=== PATIENT | male | born 1955 | race Caucasian/White ===

== ENCOUNTER → 2020-04-23 14:12 | Outpatient (BNVA) | payer SELFPAY | PROVIDERS: PCP Internal Medicine; Visit Provider Urology | DX: Z76.89 Persons encountering health services in other specified circumstances (principal) ==

== ENCOUNTER → 2021-06-17 12:14 | Outpatient (BNVA) | payer BC, SELFPAY | PROVIDERS: PCP Internal Medicine; Visit Provider Urology ==

== ENCOUNTER → 2021-09-19 10:53 | Outpatient (BNVA) | payer OTHER, SELFPAY | PROVIDERS: PCP Internal Medicine; Visit Provider Urology | DX: R35.1 Nocturia (principal); R39.12 Poor urinary stream | CPT/HCPCS: 52000 ==

== ENCOUNTER 2023-08-05 10:12 | Outpatient (AMB) | payer OTHER, SELFPAY ==
--- NOTE | 2023-08-05 10:21 | A.OFFVIS_ITS ---
Intake Intake Visit Reasons: PVR Follow Up Intake Note: Patient of Dr Guevara presents today for a follow-up on PVR: Meds- Tamsulosin Allergies to Antibiotic- Amoxicillin Blood Thinner- None Post Void Residual: 102 mL Nursing Resident Required: No Accompanied by: Self / Same As Patient Allergies amoxicillin Allergy (Unknown, Verified 09/20/23 09:44) Unknown HPI HPI Comments History of Present Illness Details 08/05/2023--Jhon is a 68-year-old male who has been followed by Dr. Guevara in the past for BPH. He was seen last in the office on 01/06/2022. He is seen for the following urologic conditions - lower urinary tract symptoms. He complains of weak stream. Review of chart: 01/16/2022 PSA under 2.5 Cystoscopy with tight bladder neck Recommend transurethral incision of the prostate Risks and benefits discussed Lower Urinary Tract Symptoms:?Current visit is for further evaluation of, lower urinary tract symptoms, predominate obstructive symptoms.?Current treatment includes 03/15 , medication, alpha jacqueline, tamsulosin.?Prostate Symptom Score 8/18 , Moderate (9-19), Bother 3.?Symptoms include /18 , frequency, weak stream, nocturia (>2), and are progressing.?Results from testing include? renal/bladder us? Yes ? date? 03/24/2018 ? PVR? 120 ? prostate size? 30 PSA - 08/19 1.6 ?Prior Prostate Score unknown.?Prostate volume 30-50gm.? 08/05/2023--plan: Refill tamsulosin. Dis cussed follow-up with office cystoscopy [facility] Surgical History No pertinent past surgical history Family History Father No problems noted. Mother No problems noted. Sister Breast cancer Brother Oral cancer Sister Lymph node cancer Social History Alcohol intake: current Alcohol intake frequency: holidays/special occasions only Alcohol type: wine Patient Tobacco Use Status: Former Tobacco user Quit Date: Quit at the age 17 yrs old, smoked for a short period of time. Review of Systems Const All systems reviewed & are unremarkable except as noted in HPI and below Reports no additional complaints Eyes Reports no additional complaints ENT Reports no additional complaints Card Reports no additional complaints Resp Reports no additional complaints GI Reports no additional complaints Reports as per HPI Musc Reports no additional complaints Skin/Breast Reports system reviewed and no additional complaints, except as documented Neuro Reports no additional complaints Psych Reports no additional complaints Endo Reports no additional complaints Javi/Lymph Reports no additional complaints Aller/Immun Reports no additional complaints Results AMB Urinalysis, Automated UA Leukoctes 0 Briana/uL Last Edit by ANANT Sanchez on 08/05/23 10:46 UA Nitrite Negative Last Edit by ANANT Sanchez on 08/05/23 10:46 UA Urobilinogen 0.2 mg/dL Last Edit by ANANT Sanchez on 08/05/23 10:4 6 UA Protein 0 mg/dL Last Edit by ANANT Sanchez on 08/05/23 10:46 UA pH 7.0 Last Edit by ANANT Sanchez on 08/05/23 10:46 UA Blood 0 Parth/uL Last Edit by ANANT Sanchez on 08/05/23 10:46 UA Specific [place] 1.010 Last Edit by ANANT Sanchez on 08/05/23 10: 46 UA Ketone Negative Last Edit by ANANT Sanchez on 08/05/23 10:46 UA Bilirubin 0 mg/dL Last Edit by ANANT Sanchez on 08/05/23 10:46 UA Glucose 0 mg/dL Last Edit by ANANT Sanchez on 08/05/23 10:46 Results Reviewed Results Reviewed: Laboratory Last Values Urine pH (Auto) 7.0 08/05/23 10:44 Specific [place] (Auto) 1.010 08/05/23 10:44 Urine Protein (Auto) 0 mg/dL 08/05/23 10:44 Glucose (UA)(Auto) 0 mg/dL 08/05/23 10:44 Urine Ketones (Auto) Negative 08/05/23 10:44 Urine Blood (Auto) 0 Parth/uL 08/05/23 10:44 Urine Nitrite (Auto) Negative 08/05/23 10:44 Urine Bilirubin (Auto) 0 mg/dL 08/05/23 10:44 Urine Urobilinogen (Auto) 0.2 mg/dL 08/05/23 10:44 Leukocyte Esterase (Auto) 0 Briana/uL 08/05/23 10:44 Assessment & Plan Assessment & Plan (1) BPH w urinary obs/LUTS: Code(s): N40.1 - Benign prostatic hyperplasia with lower urinary tract symptoms; N13.8 - Other obstructive and reflux uropathy (2) Weak urinary stream: Code(s): R39.12 - Poor urinary stream (3) Nocturia: Code(s): R35.1 - Nocturia Plan Tamsulosin 0.4 mg daily PSA screening Follow-up office cystoscopy Orders: Orders PSA,Total (Free>4and<10) 08/09/23 Z12.5 - Encounter for screening for malignant neoplasm of prostate AMB Urinalysis Automated 08/05/23 Z13.9 - Encounter for screening, unspecified Medications: Refilled tamsulosin 0.8 mg (2 x 0.4 mg) PO BEDTIME 180 caps 3RF 90 days Coding Level of Care Code Est Pt Level 4 (10594) Diagnoses BPH w urinary obs/LUTS N40.1; N13.8 Weak urinary stream R39.12 Nocturia R35.1
== END 2023-08-05 11:09 | disposition home or self-care (01) ==
PROVIDERS: PCP Internal Medicine; Visit Provider Urology
DX: N40.1 Benign prostatic hyperplasia with lower urinary tract symptoms (principal); N13.8 Other obstructive and reflux uropathy; R39.12 Poor urinary stream; R35.1 Nocturia
CPT/HCPCS: 99214

== ENCOUNTER → 2023-08-05 10:12 | Outpatient (BNVA) | payer OTHER, SELFPAY | PROVIDERS: PCP Internal Medicine; Visit Provider Urology | DX: N40.1 Benign prostatic hyperplasia with lower urinary tract symptoms (principal); N13.8 Other obstructive and reflux uropathy | CPT/HCPCS: 81003 ==

== ENCOUNTER 2023-08-09 09:20 | Outpatient (REF) | payer OTHER, SELFPAY ==
[2023-08-09 12:59] LABS: PSA,Total (Free>4and<10) 0.27 ng/mL (0.00-4.00)
== END 2023-08-09 09:21 | disposition home or self-care (01) ==
LOC: HO.HMGCLDS 09:20
PROVIDERS: PCP Internal Medicine; Visit Provider Urology
DX: Z12.5 Encounter for screening for malignant neoplasm of prostate (principal)
CPT/HCPCS: 36415; 84153

== ENCOUNTER 2023-09-20 09:12 | Outpatient (AMB) | payer OTHER, SELFPAY ==
--- NOTE | 2023-09-20 09:41 | A.OFFVIS_ITS ---
Intake Intake Visit Reasons: cysto/PSA Intake Note: Patient presents today for a Cystoscopy Meds: Tamsulosin Allergies to Antibiotic: Amoxicillin Blood Thinner: None Urinalysis test clear for Cysto? Yes Disposable Uro-G Cystoscope Cannula: Lot: [id number] Exp: 04/22/2026 Customer Support Coordinator Required: No Accompanied by: Self / Same As Patient Allergies amoxicillin Allergy (Unknown, Verified 09/20/23 09:44) Unknown HPI HPI Comments History of Present Illness Details Jhon is a 68-year-old male who I am following LUTS secondary to BPH. He is here in follow-up office cystoscopy and PSA screening. Reviewed recent PSA-0.27 Office cystoscopy mild trabeculations--prostatic urethra is not obstructive Discussed risks and benefits of TUIBN to include bleeding, incontinence, scarring. Currently the patient is using tamsulosin 0.8 mg that time and states that he feels he has a stronger stream For now will continue medication therapy. Consider minimally invasive therapy in the future pending change in symptoms PFSH Surgical History No pertinent past surgical history Family History Father No problems noted. Mother No problems noted. Sister Breast cancer Brother Oral cancer Sister Lymph node cancer Social History Alcohol intake: current Alcohol intake frequency: holidays/special occasions only Alcohol type: wine Patient Tobacco Use Status: Former Tobacco user Quit Date: Quit at the age 17 yrs old, smoked for a short period of time. Review of Systems Const All systems reviewed & are unremarkable except as noted in HPI and below Reports no additional complaints Eyes Reports no additional complaints ENT Reports no additional complaints Card Reports no additional complaints Resp Reports no additional complaints GI Reports no additional complaints Reports as per HPI Musc Reports no additional complaints Skin/Breast Reports system reviewed and no additional complaints, except as documented Neuro Reports no additional complaints Psych Reports no additional complaints Endo Reports no additional complaints Javi/Lymph Reports no additional complaints Aller/Immun Reports no additional complaints Office Procedures Cystoscopy Consent Discussed risk and benefit or proposed procedure with the patient. Information consent for procedure given to the patient. Discussed technical aspects, risks, benefits and alternatives in full. Addressed all of the patient's questions and concerns regarding the procedure. The patient demonstrated knowledge and understanding. They wish to proceed with this procedure. Preparation The patient was prepped in the usual manner. A bale opener was present and in the room. Genitalia was prepped with betadine solution in a sterile manner. Lidocaine Jelly 2% was placed into the urethra and 16Fr flexible Olympus cystoscope was inserted into the meatus after adequate lubrication. Time out per protocol performed. Bladder Inspection Bladder Inspection: The bladder was inspected in its entirety with utilization retroflexion displaying: Tumor(s): Nonvisualized Trabeculation: Mild Mucosal Erthema: Not applicable Orifices: normal shape and position Urethra: normal Cystoscopy findings: prostatic urethra non obstructive, bulbous urethra WNL, no suspicious bladder lesions visualized [id number] DISPOSABLE SCOPE URO-G FLEXIBLE SCOPE Procedure code (CPT) selection complete Office Meds lidocaine HCl 2 % mucosal jelly in applicator Performing Provider: Juan Jose Negrete MD Performing Location: [facility] Administered by: Trip Segundo LPN on 09/20/23 09:52 Dose Route Admin Location Dispensed Lot Number Expiration Date [facility] Solar Sales Consultant 20 mL intra-urethral 20 mL naproxen 500 mg tablet Performing Provider: Juan Jose Negrete MD Performing Location: [facility] Administered by: Trip Segundo LPN on 09/20/23 09:52 Dose Route Admin Location Dispensed Lot Number Expiration Date [place] [employer] 500 mg PO 1 tab ciprofloxacin HCl 500 mg tablet Performing Provider: Juan Jose Negrete MD Performing Location: [facility] [place] Administered by: Trip Segundo LPN on 09/20/23 09:52 Dose Route Admin Location Dispensed Lot Number Expiration Date [place] [employer] 500 mg PO 1 tab Results AMB Urinalysis, Automated UA Leukoctes 0 Briana/uL Last Edit by Karolyn Dawkins CMA on 09/20/23 09 :46 UA Nitrite Negative Last Edit by Karolyn Dawkins CMA on 09/20/23 09: 46 UA Urobilinogen 3.5 mg/dL Last Edit by Karolyn Dawkins CMA on 4 09:46 UA Protein 0 mg/dL Last Edit by Karolyn Dawkins CMA on 09/20/23 09:46 UA pH 5.0 Last Edit by Karolyn Dawkins CMA on 09/20/23 09:46 UA Blood 0 Parth/uL Last Edit by Karolyn Dawkins CMA on 09/20/23 09:46 UA Specific [place] 1.020 Last Edit by Karolyn Dawkins CMA on 09:46 UA Ketone Negative Last Edit by Karolyn Dawkins CMA on 09/20/23 09:4 6 UA Bilirubin 0 mg/dL Last Edit by Karolyn Dawkins CMA on 09/20/23 09: 46 UA Glucose 0 mg/dL Last Edit by Karolyn Dawkins CMA on 09/20/23 09:46 Results Reviewed Results Reviewed: Laboratory Last Values Urine pH (Auto) 5.0 09/20/23 09:45 Specific [place] (Auto) 1.020 09/20/23 09:45 Urine Protein (Auto) 0 mg/dL 09/20/23 09:45 Glucose (UA)(Auto) 0 mg/dL 09/20/23 09:45 Urine Ketones (Auto) Negative 09/20/23 09:45 Urine Blood (Auto) 0 Parth/uL 09/20/23 09:45 Urine Nitrite (Auto) Negative 09/20/23 09:45 Urine Bilirubin (Auto) 0 mg/dL 09/20/23 09:45 Urine Urobilinogen (Auto) 3.5 mg/dL 09/20/23 09:45 Leukocyte Esterase (Auto) 0 Briana/uL 09/20/23 09:45 Assessment & Plan Assessment & Plan (1) BPH w urinary obs/LUTS: Code(s): N40.1 - Benign prostatic hyperplasia with lower urinary tract symptoms; N13.8 - Other obstructive and reflux uropathy (2) Weak urinary stream: Code(s): R39.12 - Poor urinary stream (3) Nocturia: Code(s): R35.1 - Nocturia Plan Currently the patient is using tamsulosin 0.8 mg that time and states that he feels he has a stronger stream For now will continue medication therapy. Consider minimally invasive therapy in the future pending change in symptoms Orders: Orders AMB Urinalysis Automated Today R33.9 - Retention of urine, unspecified AMB Cystoscopy Today N13.8 - Other obstructive and reflux uropathy, N40.1 - Benign prostatic hyperplasia with lower urinary tract symptoms, R35.1 - Nocturia, R39.12 - Poor urinary stream Coding Level of Care Code Procedure Only Diagnoses BPH w urinary obs/LUTS N40.1; N13.8 Weak urinary stream R39.12 Nocturia R35.1 CPT Codes Cystoscopy - CPT: 69165-[id number] ([id number])
== END 2023-09-20 10:38 | disposition home or self-care (01) ==
PROVIDERS: PCP Internal Medicine; Visit Provider Urology
DX: N40.1 Benign prostatic hyperplasia with lower urinary tract symptoms (principal); N13.8 Other obstructive and reflux uropathy; R35.1 Nocturia; R39.12 Poor urinary stream; R33.9 Retention of urine, unspecified
CPT/HCPCS: 52000

== ENCOUNTER → 2023-09-20 09:12 | Outpatient (BNVA) | payer OTHER, SELFPAY | PROVIDERS: PCP Internal Medicine; Visit Provider Urology | DX: N40.1 Benign prostatic hyperplasia with lower urinary tract symptoms (principal); N13.8 Other obstructive and reflux uropathy; R33.8 Other retention of urine; R39.12 Poor urinary stream; R35.1 Nocturia; Z79.899 Other long term (current) drug therapy | CPT/HCPCS: 52000; 81003 ==

== ENCOUNTER 2024-03-20 15:18 | Outpatient (AMB) | payer OTHER, SELFPAY ==
--- NOTE | 2024-03-20 15:07 | MHC.OFFVIS ---
Intake Visit Reasons: 6m follow up Intake Note: Patient is present for 6m f/u Urology Medication:tamsulosin Antibiotic Allergy:amoxicillin Blood Thinner:none [address] [employer] Required: No Allergies amoxicillin Allergy (Unknown, Verified 03/20/24 15:09) Unknown Medication List - Last Reconciled 03/20/24 by Juan Jose Negrete MD oxybutynin chloride ER 5 mg PO BEDTIME silodosin (Rapaflo) 8 mg PO DAILY tamsulosin 0.8 mg (2 x 0.4 mg) PO BEDTIME 90 days HPI Comments Details: 03/20/24--patient is on tamsulosin 0.8 mg that he takes after dinner. He states he is better in the daytime but is up every 2 hours at nighttime. I have discussed further evaluation to rule out sleep apnea. I will prescribe an anticholinergic to take at bedtime. We will also try an alternative alpha-jacqueline if covered by his insurance Rapaflo 8 mg daily. Review of chart: Jhon is a 68-year-old male who I am following LUTS secondary to BPH. He is here in follow-up office cystoscopy and PSA screening. Reviewed recent PSA-0.27 Office cystoscopy mild trabeculations--prostatic urethra is not obstructive Discussed risks and benefits of TUIBN to include bleeding, incontinence, scarring. Currently the patient is using tamsulosin 0.8 mg that time and states that he feels he has a stronger stream For now will continue medication therapy. Consider minimally invasive therapy in the future pending change in symptoms PFSH Surgical History No pertinent past surgical history Family History Father No problems noted. Mother No problems noted. Sister Breast cancer Brother Oral cancer Sister Lymph node cancer Social History Alcohol intake: current Alcohol intake frequency: holidays/special occasions only Alcohol type: wine Patient Tobacco Use Status: Former Tobacco user Review of Systems Const All systems reviewed & are unremarkable except as noted in HPI and below Reports no additional complaints Eyes Reports no additional complaints ENT Reports no additional complaints Card Reports no additional complaints Resp Reports no additional complaints GI Reports no additional complaints Reports as per HPI Musc Reports no additional complaints Skin/Breast Reports system reviewed and no additional complaints, except as documented Neuro Reports no additional complaints Psych Reports no additional complaints Endo Reports no additional complaints Javi/Lymph Reports no additional complaints Aller/Immun Reports no additional complaints Telehealth Telehealth Telehealth Platform: [employer] Location of provider rendering services: practice address Location of patient: address on file Patient Identification confirmed using: Name, : Yes Telehealth method: voice only Patient verbally consented to treatment: Yes Patient verbally consented to billing insurance company: Yes Patient informed of any privacy concerns related to visit: Yes Minutes spent on Phone/Video with Pt.: 18 Assessment & Plan Assessment & Plan (1) Nocturia: Code(s): R35.1 - Nocturia Category: Medical (2) BPH w urinary obs/LUTS: Code(s): N40.1 - Benign prostatic hyperplasia with lower urinary tract symptoms; N13.8 - Other obstructive and reflux uropathy Category: Medical (3) Weak urinary stream: Code(s): R39.12 - Poor urinary stream Category: Medical Plan I have discussed further evaluation to rule out sleep apnea. I will prescribe an anticholinergic to take at bedtime. Will also try an alternative alpha-jacqueline if covered by his insurance Rapaflo 8 mg daily.Neurology referral. Oxybutynin 5 mg at bedtime. Trial of Rapaflo to replace tamsulosin Orders: Referrals Neurology Referral R35.1 - Nocturia Medications: New silodosin (Rapaflo) must administer with a meal/food, to replace tamsulosin 8 mg PO DAILY 30 caps 2RF oxybutynin chloride ER 5 mg PO BEDTIME 30 tabs 2RF Patient Instructions: The patient had an opportunity to ask questions regarding treatment plan. The patient expressed understanding and agreement with the above treatment plan. The patient is aware they should contact our office by phone for worsening of their current condition or the appearance of new symptoms. Compliance is encouraged with any medications and followup testing that is ordered. It is a privilege to be allowed the opportunity to participate in the urologic care of your patient. If you have any questions or concerns regarding treatment for the above conditions please do not hesitate to contact me. The office telephone contact is [phone]. This note is constructed in part using voice recognition software. While every effort has been made to ensure accuracy shower enclosure installer errors may have been included. Yours sincerely, Juan Jose Negrete MD Coding Level of Care Code Tele Est Pt Level 4 (04233) Diagnoses Nocturia R35.1 BPH w urinary obs/LUTS N40.1; N13.8 Weak urinary stream R39.12
== END 2024-03-20 16:30 | disposition home or self-care (01) ==
LOC: HO.HUSH 15:18
PROVIDERS: PCP Internal Medicine; Visit Provider Urology
DX: N40.1 Benign prostatic hyperplasia with lower urinary tract symptoms (principal); R35.1 Nocturia; N13.8 Other obstructive and reflux uropathy; R39.12 Poor urinary stream
CPT/HCPCS: 99214

== ENCOUNTER → 2024-03-20 15:18 | Outpatient (BNVA) | payer OTHER, SELFPAY | PROVIDERS: PCP Internal Medicine; Visit Provider Urology ==

== ENCOUNTER 2024-05-18 11:42 | Outpatient (AMB) | payer OTHER, SELFPAY ==
--- NOTE | 2024-05-17 21:59 | MHC.OFFVIS ---
Intake Visit Reasons: 8w/med review Intake Note: Patient is present for 8W/MED REVIEW Urology Medication:SILODOSIN, OXYBUTYNIN Antibiotic Allergy:AMOXCILLIN Blood Thinner:NONE Studio Coordinator Required: No Allergies amoxicillin Allergy (Unknown, Verified 05/18/24 11:45) Unknown HPI Comments Details: 05/18/24--FU BPH symptoms. Jhon was last seen in the office on 03/20/24. He complained of being bothered by nocturia and was started on oxybutynin 5 mg at bedtime, in combination with rapaflo 8 mg to replace tamsulosin. Jhon states he has had many SE from the oxybutynin including reflux, diarrhea, stomach upset, feeling like he is not emptying the bladder. He states his told him he snores and he has been recently wearing a nasal strip which has helped decrease his nocturia. He also stops drinking and eating 4 hrs prior to going to bed. He feels the tamsulosin worked better than the Rapaflo. 30 minutes spent in review of records pertaining to this visit and including [id number] discussion with the patient and documentation of this visit. Review of chart: 03/20/24--patient is on tamsulosin 0.8 mg that he takes after dinner. He states he is better in the daytime but is up every 2 hours at nighttime. I have discussed further evaluation to rule out sleep apnea. I will prescribe an anticholinergic to take at bedtime. We will also try an alternative alpha-jacqueline if covered by his insurance Rapaflo 8 mg daily. Jhon is a 68-year-old male who I am following LUTS secondary to BPH. He is here in follow-up office cystoscopy and PSA screening. Reviewed recent PSA-0.27 Office cystoscopy mild trabeculations--prostatic urethra is not obstructive. Discussed risks and benefits of TUIBN to include bleeding, incontinence, scarring. Currently the patient is using tamsulosin 0.8 mg that time and states that he feels he has a stronger stream For now will continue medication therapy. Consider minimally invasive therapy in the future pending change in symptoms PFSH Surgical History No pertinent past surgical history Family History Father No problems noted. Mother No problems noted. Sister Breast cancer Brother Oral cancer Sister Lymph node cancer Social History Alcohol intake: current Alcohol intake frequency: holidays/special occasions only Alcohol type: wine Patient Tobacco Use Status: Former Tobacco user Review of Systems Const All systems reviewed & are unremarkable except as noted in HPI and below Reports no additional complaints Eyes Reports no additional complaints ENT Reports no additional complaints Card Reports no additional complaints Resp Reports no additional complaints GI Reports no additional complaints Reports as per HPI Musc Reports no additional complaints Skin/Breast Reports system reviewed and no additional complaints, except as documented Neuro Reports no additional complaints Psych Reports no additional complaints Endo Reports no additional complaints Javi/Lymph Reports no additional complaints Aller/Immun Reports no additional complaints Assessment & Plan Assessment & Plan (1) Nocturia: Code(s): R35.1 - Nocturia Category: Medical (2) BPH w urinary obs/LUTS: Code(s): N40.1 - Benign prostatic hyperplasia with lower urinary tract symptoms; N13.8 - Other obstructive and reflux uropathy Category: Medical (3) Weak urinary stream: Code(s): R39.12 - Poor urinary stream Category: Medical (4) Screening PSA (prostate specific antigen): Code(s): Z12.5 - Encounter for screening for malignant neoplasm of prostate Category: Medical Plan Resume tamsulosin 0.8 mg daily, d/c oxybutynin, fu in 12 months, PSA prior Orders: Orders PSA,Total (Free>4and<10) 11 Months N13.8 - Other obstructive and reflux uropathy, N40.1 - Benign prostatic hyperplasia with lower urinary tract symptoms, Z12.5 - Encounter for screening for malignant neoplasm of prostate AMB Urinalysis Automated Today Z13.9 - Encounter for screening, unspecified Medications: Refilled tamsulosin 0.8 mg (2 x 0.4 mg) PO BEDTIME 90 days 180 caps 3RF Discontinued silodosin (Rapaflo) must administer with a meal/food, to replace tamsulosin Discontinued Reason: Doctor's Order 8 mg PO DAILY 30 caps 2RF oxybutynin chloride ER Discontinued Reason: Doctor's Order 5 mg PO BEDTIME 30 tabs 2RF Coding Level of Care Code Est Pt Level 4 (93130) Diagnoses Nocturia R35.1 BPH w urinary obs/LUTS N40.1; N13.8 Weak urinary stream R39.12 Screening PSA (prostate specific antigen) Z12.5
== END 2024-05-18 12:19 | disposition home or self-care (01) ==
PROVIDERS: PCP Internal Medicine; Visit Provider Urology
DX: N40.1 Benign prostatic hyperplasia with lower urinary tract symptoms (principal); R35.1 Nocturia; N13.8 Other obstructive and reflux uropathy; R39.12 Poor urinary stream; Z13.9 Encounter for screening, unspecified
CPT/HCPCS: 99214

== ENCOUNTER → 2024-05-18 11:42 | Outpatient (BNVA) | payer OTHER, SELFPAY | PROVIDERS: PCP Internal Medicine; Visit Provider Urology | DX: N40.1 Benign prostatic hyperplasia with lower urinary tract symptoms (principal); N13.8 Other obstructive and reflux uropathy; R35.1 Nocturia; R39.12 Poor urinary stream | CPT/HCPCS: 81003 ==

== ENCOUNTER 2025-05-17 11:13 | Outpatient (AMB) | payer MEDICARE, SELFPAY ==
--- NOTE | 2025-05-17 11:29 | MHC.OFFVIS ---
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 History of Present Illness The patient is a 69-year-old individual presenting with lower urinary tract symptoms secondary to Benign Prostatic Hyperplasia (BPH). The patient has been experiencing nocturia, with episodes of waking up two to five times per night to urinate. The patient attributes some of the symptoms to dietary habits, particularly the consumption of coffee, which is known to irritate the bladder. The patient consumes two to three cups of coffee in the morning and has been advised to reduce this to one or two cups to see if symptoms improve. The patient also consumes yogurt and occasionally drinks alcohol, but does not have a steady intake of alcohol. The patient is currently on tamsulosin for BPH management and has a history of a PSA level of 0.5 mg, which was considered normal. The patient has been advised to continue tamsulosin and to consider spacing the doses to see if it affects symptoms. Results - PSA level: 0.5 mg (normal) Plan 1. Benign Prostatic Hyperplasia (Bph) - Continue tamsulosin for management of BPH. - Consider spacing tamsulosin doses to assess impact on symptoms. - Reduce coffee intake to one or two cups per day to evaluate effect on nocturia. 2. Preventative Care: Psa Screening - PSA screening was conducted with a result of 0.5 mg, indicating normal levels. 05/18/24--FU BPH symptoms. Jhon was last seen in the office on 03/20/24. He complained of being bothered by nocturia and was started on oxybutynin 5 mg at bedtime, in combination with rapaflo 8 mg to replace tamsulosin. Jhon states he has had many SE from the oxybutynin including reflux, diarrhea, stomach upset, feeling like he is not emptying the bladder. He states his told him he snores and he has been recently wearing a nasal strip which has helped decrease his nocturia. He also stops drinking and eating 4 hrs prior to going to bed. He feels the tamsulosin worked better than the Rapaflo. 30 minutes spent in review of records pertaining to this visit and including [id number] discussion with the patient and documentation of this visit. 03/20/24--patient is on tamsulosin 0.8 mg that he takes after dinner. He states he is better in the daytime but is up every 2 hours at nighttime. I have discussed further evaluation to rule out sleep apnea. I will prescribe an anticholinergic to take at bedtime. We will also try an alternative alpha-jacqueline if covered by his insurance Rapaflo 8 mg daily. Jhon is a 68-year-old male who I am following LUTS secondary to BPH. He is here in follow-up office cystoscopy and PSA screening. Reviewed recent PSA-0.27 Office cystoscopy mild trabeculations--prostatic urethra is not obstructive. Discussed risks and benefits of TUIBN to include bleeding, incontinence, scarring. Currently the patient is using tamsulosin 0.8 mg that time and states that he feels he has a stronger stream For now will continue medication therapy. Consider minimally invasive therapy in the future pending change in symptoms [facility] Surgical History No pertinent past surgical history Family History Father No problems noted. Mother No problems noted. Sister Breast cancer Brother Oral cancer Sister Lymph node cancer Social History Alcohol intake: current Alcohol intake frequency: holidays/special occasions only Alcohol type: wine Patient Tobacco Use Status: Former Tobacco user Office Procedures Post Void Residual Post Residual Void Post Void Residual (PVR): [id number] Void Residual by ultrasound Results AMB Urinalysis, Automated UA Leukoctes 0 Briana/uL Last Edit by Miriam Bolivar on 05/17/25 16:55 UA Nitrite Negative Last Edit by Miriam Bolivar on 05/17/25 16:55 UA Urobilinogen 0.2 mg/dL Last Edit by Miriam Bolivar on 05/17/25 16:55 UA Protein 0 mg/dL Last Edit by Miriam Bolivar on 05/17/25 16:55 UA pH 6.0 Last Edit by Miriam Bolivar on 05/17/25 16:55 UA Blood 0 Parth/uL Last Edit by Miriam Bolivar on 05/17/25 16:55 UA Specific Maynard 1.015 Last Edit by Miriam Bolivar on 05/17/25 16:55 UA Ketone Negative Last Edit by Miriam Bolivar on 05/17/25 16:55 UA Bilirubin 0 mg/dL Last Edit by Miriam Bolivar on 05/17/25 16:55 UA Glucose 0 mg/dL Last Edit by Miriam Bolivar on 05/17/25 16:55 Assessment & Plan Assessment & Plan Orders: Orders AMB Post Void Residual by ultrasound Today N13.8 - Other obstructive and reflux uropathy, N40.1 - Benign prostatic hyperplasia with lower urinary tract symptoms, R35.1 - Nocturia, R39.12 - Poor urinary stream AMB Urinalysis Automated Today Z13.9 - Encounter for screening, unspecified Coding CPT Codes Post Residual Void - PVR CPT Code: 03912-[id number] Void Residual by ultrasound ([id number])
== END 2025-05-17 12:23 | disposition home or self-care (01) ==
LOC: HO.HUSH 11:14
PROVIDERS: PCP Internal Medicine; Visit Provider Urology
DX: Z13.9 Encounter for screening, unspecified (principal)

== ENCOUNTER → 2025-05-17 11:13 | Outpatient (BNVA) | payer MEDICARE, SELFPAY | PROVIDERS: PCP Internal Medicine; Visit Provider Urology | DX: N40.1 Benign prostatic hyperplasia with lower urinary tract symptoms (principal); N13.8 Other obstructive and reflux uropathy; R35.1 Nocturia; R39.12 Poor urinary stream; Z79.899 Other long term (current) drug therapy | CPT/HCPCS: 51798; 81003; 99212 ==